=== PATIENT | male | born 1995 | race Caucasian/White ===

== ENCOUNTER 2019-04-30 10:36 | Emergency (ER) | payer MEDICAID ==
[~2019-04-30] VITALS: Ht 175.3 cm; Wt 115.0 kg
[~2019-04-30 10:36] MED LIST: ALBU18HF2 IH; BENZ-16 PO; FLUT16SP2 BOTHNARES
[2019-04-30 10:44] VITALS: BP 148/86
[2019-04-30] MEDS ORDERED: LIDOcaine Viscous 15ml cup MM PRN (11:15)
[2019-04-30] MEDS ORDERED: ondansetron 4mg rapidly disintigrating tab PO ONE (11:15)
[2019-04-30] MEDS ORDERED: mag hydrox/Alum hydrox/simeth 30ml oral suspension PO ONE (11:15)
[2019-04-30 11:30] LABS: BASOPHILS # (AUTO) 0.1 X10'3 (0-0.2); BASOPHILS % (AUTO) 0.9 % (0-1); EOSINOPHILS # (AUTO) 0.2 X10'3 (0-0.9); EOSINOPHILS % (AUTO) 1.9 % (0-6); HEMATOCRIT 45.8 % (42.0-52.0); HEMOGLOBIN 16.2 g/dl (14.0-17.9); LYMPHOCYTES # (AUTO) 1.8 X10'3 (1.1-4.8); LYMPHOCYTES % (AUTO) 22.6 % (21-51); MEAN CORPUSCULAR HEMOGLOBIN 29.1 PG (27.0-31.0); MEAN CORPUSCULAR HGB CONC 35.4 g/dL (33.0-36.5); MEAN CORPUSCULAR VOLUME 82.2 FL (78-98); MEAN PLATELET VOLUME 7.9 FL (7.4-10.4); MONOCYTES # (AUTO) 0.6 X10'3 (0-0.9); MONOCYTES % (AUTO) 6.8 % (2-12); NEUTROPHILS # (AUTO) 5.5 X10'3 (1.8-7.7); NEUTROPHILS % (AUTO) 67.8 % (42-75); PLATELET COUNT 278 X10'3 (140-440); RED BLOOD COUNT 5.58 X10'6 (4.70-6.10); RED CELL DISTRIBUTION WIDTH 13.5 % (11.5-14.5); WHITE BLOOD COUNT 8.1 X10'3 (4.5-11.0)
[2019-04-30] MEDS ORDERED: ONDA4TAB6 PO (11:37)
[2019-04-30] MEDS ORDERED: PANT-47 PO (11:37)
[2019-04-30] MEDS ORDERED: pantoprazole 40mg Tablet.DR PO SCH (11:38)
[2019-04-30 11:44] LABS: ALANINE AMINOTRANSFERASE 58 U/L (12-78); ALBUMIN 4.1 G/DL (3.4-5.0); ALBUMIN/GLOBULIN RATIO 1.1 (1.1-1.5); ALKALINE PHOSPHATASE 59 IU/L (46-116); ANION GAP 8 (8-16); ASPARTATE AMINO TRANSFERASE 26 U/L (10-37); BILIRUBIN,TOTAL 0.4 MG/DL (0.1-1.0); BLOOD UREA NITROGEN 8 MG/DL (7-18); BUN/CREATININE RATIO 7.1 (5.4-32.0); CALCIUM 9.5 MG/DL (8.5-10.1); CHLORIDE 104 MMOL/L (99-107); CREATININE 1.13 MG/DL (0.60-1.10); GLUCOSE 111 MG/DL (70-104); POTASSIUM 3.8 MMOL/L (3.5-5.1); SODIUM 142 MMOL/L (135-145); TOTAL CARBON DIOXIDE 30.3 MMOL/L (24-32); eGFR 78 ML/MIN
[2019-04-30 11:56] LABS: LIPASE 3562 U/L (73-393)
--- NOTE | 2019-04-30 17:24 | NUR ---
only in chart to try to figure out who was taking care of this pt because he called back saying he missed a phone call from this number. found MONIKA Subramanian did call the pt and is now on the phone with him.
== END 2019-04-30 11:55 | disposition home or self-care (01) ==
LOC: ER 10:37
DX: K29.00 Acute gastritis without bleeding (principal); K21.9 Gastro-esophageal reflux disease without esophagitis; F12.90 Cannabis use, unspecified, uncomplicated; Z79.899 Other long term (current) drug therapy
CPT/HCPCS: 36415; 80053; 83690; 85025; 99284